=== PATIENT | female | born 2005 ===

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

== ENCOUNTER 2024-02-14 08:48 | Emergency (ER) | payer MEDICAID, SELFPAY ==
--- NOTE | ~2024-02-14 | CT_ITS ---
EXAMINATION: CT HEAD WITHOUT CONTRAST CLINICAL INFORMATION: Head strike COMPARISON: None available. TECHNIQUE: Contiguous axial imaging was performed from the skull base to vertex without intravenous administration of contrast. This CT examination was performed using dose optimization techniques as appropriate, variously including the following: *Automated exposure control *Adjustment of mA and/or kV according to patient size (this includes techniques or standardized protocols for targeted exams where dose is matched to indication/reason for exam; i.e. extremities or head) *Use of iterative reconstruction technique DLP: 698 mGy-cm FINDINGS: There is no evidence of acute intracranial hemorrhage or edematous territorial infarction. Garcia-white matter differentiation appears preserved. The ventricles are normal in morphology and size. No evidence for obstructive hydrocephalus. No abnormal mass effect or midline shift. No extra-axial fluid collections. No acute soft tissue or osseous abnormalities. Mucous retention cyst within the left compartment of the sphenoid sinus. The remaining visualized paranasal sinuses and mastoids are well-aerated. CT/CT head/brain wo IV con IMPRESSION: No acute intracranial pathology. Electronically signed by: Cristobal Gatica MD 02/14/2024 12:22 PM EDT
[2024-02-14 08:53] VITALS: BP 100/63; PULSE 77; RESP 18; TEMP 36.3; O2SAT 100; BMI 20.9
[2024-02-14] MEDS: Acetaminophen 325 MG TABLET 650 MG PO (09:34)
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
[2024-02-14 12:32] VITALS: BP 105/66; PULSE 61; RESP 16; TEMP 36.6; O2SAT 100
[2024-02-14 12:46] VITALS: BP 105/66; PULSE 61; RESP 16; TEMP 36.6; O2SAT 100
== END 2024-02-14 12:47 | disposition home or self-care (01) ==
PROVIDERS: Emergency Provider Emergency Medicine Emergency Medical Services; PCP Nurse Practitioner Pediatrics
DX: S06.0X0A Concussion without loss of consciousness, initial encounter (principal); V28.09XA Other motorcycle driver injured in noncollision transport accident in nontraffic accident, initial encounter; Y93.89 Activity, other specified; Y92.410 Unspecified street and highway as the place of occurrence of the external cause; Y99.9 Unspecified external cause status
CPT/HCPCS: 70450; 99283; 99284

== ENCOUNTER 2025-04-29 22:45 | Emergency (ER) | payer MEDICAID, SELFPAY ==
--- NOTE | ~2025-04-29 | CT_ITS ---
CLINICAL HISTORY: ?L OBGYN NURSE CT soft tissue neck with contrast Comparison: None provided Findings: Large mucous retention cyst present at the left sphenoid sinus with a small mucous retention cyst at the right sphenoid sinus. Minimal lobulated mucosal thickening versus small mucous retention cysts present at the right maxillary sinus. The bilateral mastoid air cells appear clear. Mild fullness of the palatine tonsils. No peritonsillar abscess. The epiglottis is within normal limits for appearance. No prevertebral fluid. The nasopharynx and oropharynx appear patent. Salivary glands are within normal limits. No suspicious thyroid nodules. No consolidation at the lung apices. No acute fractures. IMPRESSION: 1. Mild fullness of the bilateral palatine tonsils, suggesting tonsillitis. No peritonsillar abscess. This document has been electronically signed by: Ilan Mendez MD on 04/30/2025 03:51:34
[2025-04-29 22:56] VITALS: BP 111/64; PULSE 94; RESP 18; TEMP 37.7; O2SAT 98; BMI 22.7
[2025-04-29 23:33] LABS: IDNOW Serial# 6674DD1D; Strep A Nucleic Acid Negative (Negative)
--- OUTSIDE RECORDS SUMMARY | 2025-04-29 23:49 | XMS_ITS | Clinical Summary ---
Author Organization [employer] Address [address] [place] [address] Care Team Providers Care Assembler [employer] Spider Name Role Phone Jade Matos MD Primary Care Provider [phone] Allergies No known active allergies Medications cetirizine (ZyrTEC) 10 MG tablet Take 1 tablet (10 mg) by mouth in the morning. 30 tablet 11 09/05/2022 Active levocetirizine (Xyzal) 2.5 MG/5ML solutionIndicat ions:Seasonal allergies Take 5 mL (2.5 mg) by mouth in the evening. 148 mL 12 03/25/2023 Active diphenhydrAMINE (BENADryl) 25 MG tabletIndicatio ns:Seasonal allergies Take 2 tablets (50 mg) by mouth if needed at bedtime for itching or allergies. 30 tablet 03/25/2023 Active Menthol (Cough Drops) 2.7 MG lozengeIndicati ons:Sore throat 1 cough drop every 4 to 6 hours. 30 lozenge 03/25/2023 Active fexofenadine (Nicole) 180 MG tabletIndicatio ns:Seasonal allergies TAKE ONE TABLET EVERY DAY NEEDED (ALLERGIES) 30 tablet 1 06/11/2023 Active Active Problems Problem Noted Date Diagnosed Date Acne cosmetica 04/18/2016 Allergic rhinitis 10/09/2013 Vitamin D deficiency 03/11/2012 Immunizations Immunization Administration Dates Next Due DTaP 09/22/2008, 6,01/25/2005,2004,0 2004 Hep A, ped/adol, 2 dose 02/27/2007,04/15/2006 Hep B, Adolescent or Pediatric 01/26/2005,2004,2004,2004 Hib (HbOC) 12/03/2005,01/26/2005,2004 ,2004 IPV 09/22/2008,01/26/2005,2004 ,2004 Influenza, IIV3, injectable 03/19/2006, 5 MMR 09/22/2008,08/01/2005 Meningococcal MCV4P [id number]-135 04/18/2016 Tdap 04/18/2016 Varicella 10/09/2013,09/22/2008 Social History Tobacco Use Types Packs/Day Years Used Date Smoking Tobacco: Unknown Tobacco Cessation:Counseling Given: No Comments Unknown Sex and Gender Information Value Date Recorded Sex Assigned at Female 04/09/2022 10:18 AM EDT Legal Sex Female 10:18 AM EDT Gender Identity Female 04/09/2022 10:18 AM EDT Sexual Orientation Straight 04/09/2022 10 :18 AM EDT Last Filed Vital Signs Vital Sign Reading Time Taken Comments Blood Pressure 102/63 03/25/2023 3:09 PM EDT Pulse 65 03/25/2023 3:09 PM EDT Temperature 37 C (98.6 F) 03/25/2023 3:09 PM EDT Respiratory Rate 18 03/25/2023 3:09 PM EDT Oxygen Saturation 99% 03/25/2023 3:09 PM EDT Inhaled Oxygen Concentration - - Weight 63 kg (139 lb) 09/05/2022 2:30 PM EDT Height 153.7 cm (5' 0.5 ) 09/05/2022 2:30 PM EDT Body Mass Index 26.7 09/05/2022 2:30 PM EDT Plan of Treatment Health Maintenance Due Date Last Done Comments Chlamydia and Gonorrhea Screening 2004 Depression Screening 2004 HIV Screening 2004 SDOH Screening 2004 Disability Screening 2004 Alcohol/Substance Use Screening 2016 Family Planning (PISQ) 2019 HPV Vaccines (1 - 3-dose series) 2019 Meningococcal B Vaccine (1 of 2 - Standard) 2020 Hepatitis C Screening 2022 Tobacco Screening 03/25/2024 03/25/2023 COVID-19 Vaccine ( - season) 2025 Influenza Vaccine (#1) 2025 03/19/2006, 2004 DTaP/Tdap/Td Vaccines (7 - Td or Tdap) 04/18/2026 04/18/2016, 09/22/2008, 12/03/2005, Additional history exists Zoster Vaccines (1 of 2) 2054 RSV Patients and Patients Aged 60 years or older (1 - 1-dose 75+ series) 2079 Hepatitis B Vaccines Completed 01/26/2005, 2004, 2004, Additional history exists HIB Vaccines Completed 12/03/2005, 01/08, 2004, Additional history exists Hepatitis A Vaccines Completed 02/27/2007, 04/15/20 IPV Vaccines Completed 09/22/2008, 01/08, 2004, Additional history exists Meningococcal Vaccine Aged Out 04/18/2016 No saira emmy eligible based on patient's age to complete this topic Pneumococcal Vaccine: Pediatrics (0 to 5 Years) and At-Risk Patients (6 to 49) Years Aged Out No longer eligible based on patient's age to complete this topic RSV under 20 months Aged Out No longe r eligible based on patient's age to complete this topic Rotavirus Vaccines Aged Out No longer eligible based on patient's age to complete this topic Insurance [facility] Care Teams Assembler [employer] Spider Relationship Specialty Start Date End Date Jade Matos MD [address] [place] [id number] PCP - General Internal Medicine 07/22/23
--- OUTSIDE RECORDS SUMMARY | 2025-04-29 23:49 | XMS_ITS | Encounter Summary ---
Author Organization [employer] Address [address] [place] [address] [address] [place] [address] Care Team Providers Care Consultant Electronics Name Role Phone Katheryn Kincaid NP Primary Care Provider Jade Manriquez MD Primary Care Provider [phone] Encounter Details Date Type Department Care Team (Late st Contact Info) Description 04/12/2023 Orders Only [facility] [address] [place], [place] [id number] Nannette Kirkpatrick MD [address] [place] [address] Seasonal allergies (Primary Dx) Social History Tobacco Use Types Packs/Day Years Used Date Smoking Tobacco: Unknown Comments Unknown Sex and Gender Information Value Date Recorded Sex Assigned at Female 04/09/2022 10:18 AM EDT Legal Sex Female 10:18 AM EDT Gender Identity Female 04/09/2022 10:18 AM EDT Sexual Orientation Straight 04/09/2022 10 :18 AM EDT documented as of this encounter Plan of Treatment Not on file documented as of this encounter Visit Diagnoses Diagnosis Seasonal allergies- Primary Allergic rhinitis, cause unspecified documented in this encounter Care Teams Consultant Electronics Relationship Specialty Start Date End Date Katheryn Kincaid NP PCP - General Pediatrics 04/18/16 07/21/23 Jade Matos MD [address] [place] [address] PCP - General Internal Medicine 07/22/23 documented as of this encounter
[2025-04-29 23:54] VITALS: BP 113/52; PULSE 82; RESP 16; TEMP 37.1; O2SAT 98
--- NOTE | 2025-04-30 00:54 | ED.URI ---
HPI - URI/Sore Throat General Chief Complaint: Upper Respiratory Symptoms Stated Complaint: Sore Throat Time Seen by Provider: 04/30/25 00:20 History of Present Illness ED Provider: Soraya Rivera HPI Narrative: 19-year-old female otherwise healthy presents to the ED for evaluation with her mother complaining of a sore throat that began 4 days prior to arrival here, now with white patches noted on the tonsils, and fever. Unknown T-max, as she reports only feeling very feverish. Reports painful swallow, pain is now worse on the left than the right, though initially began on the right. Denies any cough, congestion. No chest pain, pressure, shortness of breath. No abdominal pain, nausea or vomiting, urinary complaints. Related Data Previous Rx's ?Medication ?Instructions ?Recorded amoxicillin 875 mg-potassium 1 tab PO Q12H 10 days #20 tabs 12/14/21 clavulanate 125 mg tablet albuterol sulfate 90 mcg/actuation 1 inh inhalation QID PRN shortness 08/06/23 aerosol inhaler of breath or wheezing #8.5 grams azithromycin 250 mg tablet See Rx Instructions PO .COMPLEX #6 08/06/23 (Zithromax Z-Ad) tabs prednisone 10 mg tablet 10 mg PO BID #10 tabs 08/06/23 cyclobenzaprine 10 mg tablet 10 mg PO BEDTIME PRN muscle spasm 11/04/23 #7 tabs ibuprofen 600 mg tablet 600 mg PO Q6H PRN pain #14 tabs 11/04/23 ondansetron 4 mg disintegrating 4 mg PO DAILY PRN nausea and 02/14/24 tablet vomiting 5 days #10 tabs acetaminophen 500 mg capsule 1,000 mg (2 x 500 mg) PO .q8 PRN 04/30/25 fever or pain #30 caps amoxicillin 500 mg capsule 500 mg PO BID #20 caps 04/30/25 ibuprofen 600 mg tablet 600 mg PO Q8H PRN fever or pain 04/30/25 #30 tabs Allergies Allergy/AdvReac Type Severity Reaction Status Date / Time No Known Allergies Allergy Verified 04/29/25 22:58 Review of Systems Review of Systems: ROS is otherwise negative unless mentioned in HPI. [facility] Social History Social History Alcohol intake: current Alcohol intake frequency: holidays/special occasions only Smoked in Last 30 Days: No Use of substances other than those prescribed or required for medical reasons: No Substance Use Type: Marijuana Advance Directives: No Advance Directives Information Provided: Yes Do you have a plan to hurt others: No Plan Patient : No Physical Exam Exam: Exam: Nursing notes and vital signs reviewed. Constitutional: Well-appearing, NAD. Alert. Oriented X3. Eyes: EOMI. ENT: Oropharynx pink, moist. Tonsils are 2+ bilaterally, tonsil on the left appears more edematous, with exudate bilaterally. Uvula is pointing left. Nares patent bilaterally. External ears normal. Neck: Normal inspection. Neck supple. Mild cervical adenopathy bilaterally. CVS: Normal heart rate and rhythm. Pulses normal. Respiratory: No respiratory distress. Breath sounds normal. Abdomen: Soft and nontender. Nondistended. Skin: Skin warm and dry. Normal skin color. Extremities: No lower extremity edema. Neuro: Oriented X 3. No motor deficit. Vital Signs: Vital Signs: Last Vital Signs Temp 98.7 F 04/30/25 03:50 Pulse 88 04/30/25 03:50 Resp 16 04/30/25 03:50 BP 114/53 L 04/30/25 03:50 Pulse Ox 97 04/30/25 03:50 O2 Del Method Room Air 04/30/25 03:50 BMI result Body Mass Index 22.7 Course Course Course Narrative: 4:29 AM 04/30/2025 (Temitope FONSECA): Patient is a 19-year-old female presenting to the ED for evaluation of sore throat and fever which began Saturday with the associated tonsillar exudate tonsillar swelling. Patient was treated with the Unasyn, Toradol, Decadron, and IV fluids. The patient was sent for a viral swab, strep swab, and CT of the neck to rule out WELDING PROCESS SPECIALIST due to reported deviation of the uvula on exam. Patient was signed out to this provider pending CT and laboratory results. The patient's workup has resulted and shows no leukocytosis or significant anemia, no electrolyte abnormality or JOANIE, swabs are negative for influenza, RSV, and COVID. Strep swab is negative, mono screen is negative. On repeat exam there is no unilateral swelling or uvular deviation, but there is significant bilateral tonsillitis, greater on the left, with mild tonsillar exudate, there is no trismus, no voice changes. There is some cervical anterior lymphadenopathy noted. Despite the negative strep swab, the patient meets 3/4 Centor criteria, we will continue antibiotic therapy with amoxicillin b.i.d. for 10 days. Patient will be discharged with supportive care. Medications Administered Discontinued Medications Generic Name Dose Route Start Last Admin Trade Name Kennedy PRN Reason Stop Dose Admin Dexamethasone Sodium Phosphate 10 mg 04/30/25 00:50 04/30/25 01:53 Dexamethasone Sod Phosphate 10 Mg/Ml Vial IVPUSH 04/30/25 00:51 10 mg ONCE ONE Administration Ampicillin Sodium/Sulbactam 100 mls @ 200 mls/hr 04/30/25 00:50 04/30/25 02:57 Sodium 3 gm/ Sodium Chloride IV 04/30/25 01:19 Infused ONCE ONE Infusion Sodium Chloride 1,000 mls @ 999 mls/hr 04/30/25 00:52 04/30/25 02:57 Ns IV 04/30/25 01:52 Infused .Q1H1M ONE Infusion Iohexol 100 ml 04/30/25 02:33 04/30/25 02:33 Iohexol 350 Mg/Ml 100 Ml Infus..Btl IV 04/30/25 02:34 65 ml ONCE ONE Administration Ketorolac Tromethamine 15 mg 04/30/25 00:50 04/30/25 01:52 Ketorolac Tromethamine 15 Mg/Ml Vial IVPUSH 04/30/25 00:51 15 mg ONCE ONE Administration Medical Decision Making Medical Decision Making [facility] Narrative: Upon my initial examination, she has chief complaint of sore throat. Reports that there has been an associated fever, and she now notes white patches on her tonsils. The uvula is pointing towards the left, concerning for underlying WELDING PROCESS SPECIALIST. We will also obtain a Monospot, COVID flu RSV. With the concern for underlying WELDING PROCESS SPECIALIST given the throat is extremely erythematous, as well as with tonsillar exudate bilaterally, we will administer a dose of steroids, Toradol for pain control, IV fluids, and Unasyn for antibiotic coverage. We will obtain CT soft tissue neck for further assessment and reassess. 2004-- negative mono screen. Viral panel currently pending. lab work with no leukocytosis, overall reassuring. Currently pending CT imaging of the neck. signed out to oncoming provider, Reji FONSECA Differential Diagnosis Differential Diagnoses: The differential diagnosis associated with the presentation includes Strep throat, viral sore throat, peritonsillar abscess, viral illness Admission/Observation Consideration of admission/observation: Escalation of care including admission/observation considered Lab Data [facility] Lab Attestation statement: I reviewed the patient's lab results. 04/30/25 01:34 04/30/25 01:34 Labs: Lab Results 04/29/25 04/30/25 04/30/25 Range/Units 23:18 01:34 02:06 WBC 7.0 (4.8-10.8) X10*3/uL RBC 4.23 (4.20-5.50) X10*6/uL Hgb 12.5 (12.0-16.0) g/dl Hct 36.7 L (37.0-47.0) % MCV 86.8 (80.0-98.0) fL MCH 29.6 (27.0-33.0) pg MCHC 34.1 (31.0-35.0) g/dl RDW 12.2 (11.0-16.0) % Plt Count 238 (160-400) X10*3/uL MPV 8.9 L (9.4-12.3) fL Immature Gran % (Auto) 0.3 (0.0-0.4) % Neut % (Auto) 74.8 H (45-73) % Lymph % (Auto) 14.9 L (20-40) % Elliott % (Auto) 9.6 (2-11) % Eos % (Auto) 0.1 (0-4) % Baso % (Auto) 0.3 (0-2) % Lymph # (Auto) 1.0 L (1.2-4.9) X10*3/uL Elliott # (Auto) 0.7 (0.1-1.2) X10*3/uL Eos # (Auto) 0.0 (0.0-0.4) X10*3/uL Baso # (Auto) 0.0 (0.0-0.2) X10*3/uL Abs Immat Gran (auto) 0.02 (0.00-0.03) X10*3/uL Absolute Neuts (auto) 5.2 (2.0-8.3) x10*3/uL Absolute Nucleated RBC 0.000 (0.0-0.012) X10*3/uL Nucleated RBC % (auto) 0.0 (0.0-0.2) /100WBC Sodium 137 (135-145) mmol/L Potassium 3.7 (3.3-5.1) mmol/L Chloride 103 (96-108) mmol/L Carbon Dioxide 22 (22-29) mmol/L Anion Gap 16 (12-20) BUN 11 (9-16) mg/dL Creatinine 0.66 (0.5-1.4) mg/dL Estim Creat Clear Calc 102.6 Estimated GFR > 60 Fasting Glucose 85 (60-99) mg/dL Calcium 9.4 (8.4-10.2) mg/dL Urine Test NEGATIVE (NEGATIVE) Monoscreen Negative (Negative) Influenza Type A (PCR) NEGATIVE (Negative) Influenza Type B (PCR) NEGATIVE (Negative) RSV RNA Qual (PCR) NEGATIVE (Negative) SARS-CoV-2 RNA (RT-PCR) NEGATIVE (Negative) S. pyogenes GrpA DIONISIO Negative (Negative) Radiology Impression Discussion of test interpretation with radiology: I have reviewed the radiologist's reading. Radiologist Impression: CT soft tissue neck with contrast Comparison: None provided Findings: Large mucous retention cyst present at the left sphenoid sinus with a small mucous retention cyst at the right sphenoid sinus. Minimal lobulated mucosal thickening versus small mucous retention cysts present at the right maxillary sinus. The bilateral mastoid air cells appear clear. Mild fullness of the palatine tonsils. No peritonsillar abscess. The epiglottis is within normal limits for appearance. No prevertebral fluid. The nasopharynx and oropharynx appear patent. Salivary glands are within normal limits. No suspicious thyroid nodules. No consolidation at the lung apices. No acute fractures. IMPRESSION: 1. Mild fullness of the bilateral palatine tonsils, suggesting tonsillitis. No peritonsillar abscess. This document has been electronically signed by: Ilan Mendez MD on 04/30/2025 03:51:34 Independent Historian Clinical information obtained from an independent historian. History obtained from or confirmed by: Parent (Mom at bedside) External Record Review External record reviewed: Outpatient record Discharge Plan Discharge Clinical Impression: Pharyngitis Qualifiers: Pharyngitis/tonsillitis etiology: unspecified etiology Qualified Code(s): J02.9 - Acute pharyngitis, unspecified Patient Disposition: Home, Self-Care Instructions: Pharyngitis (ED) Additional Instructions: Thank you for choosing [facility]'s Emergency Department for your care today. Thankfully your CT today shows no evidence of a peritonsillar abscess requiring drainage. Your laboratory evaluation was negative for mononucleosis, influenza, RSV, COVID, systemic infection, anemia, electrolyte abnormalities, or kidney dysfunction. At this time there is no indication for admission to the hospital or continued ED observation, and it is safe to discharge you home. Your sore throat may be secondary to a viral illness as your strep swab was negative, however based on your exam it is possible your infection is bacterial and the strep swab was a false negative. As such you should take amoxicillin twice a day for the next 10 days. You should take alternating (staggered) doses of ibuprofen 600mg and Tylenol 1000mg every 4 hours as needed for any additional pain. Please stay well hydrated and get plenty of rest. Please avoid hot liquids as this could increase your swelling and discomfort. Please follow up with your primary care physician for re-evaluation, additional management of your symptoms, and continued preventative care. If you do not have a primary care physician, please call the [facility] at [phone] to establish a new primary care physician. While waiting to establish your new primary care physician, you can call our [facility] at [phone] for non-emergency needs. Please return to the emergency department if you develop a severe or sudden change in your symptoms, difficulty opening your mouth, difficulty breathing, a fever over 100.4 that does not improve with Tylenol or Ibuprofen, recurrent vomiting, or any other new or worsening symptoms or concerns. Prescriptions: New acetaminophen 500 mg capsule 1,000 mg PO .q8 PRN (Reason: fever or pain) Qty: 30 0RF ibuprofen 600 mg tablet 600 mg PO Q8H PRN (Reason: fever or pain) Qty: 30 0RF amoxicillin 500 mg capsule 500 mg PO BID Qty: 20 0RF No Action amoxicillin-pot clavulanate 875-125 mg tablet 1 tab PO Q12H 10 Days Qty: 20 0RF azithromycin [Zithromax Z-Ad] 250 mg tablet See Rx Instructions .ROUTE .COMPLEX Qty: 6 0RF Rx Instructions: For 250 mg dose pack: take 500 mg today (day 1), then 250 mg for 4 days (days 2-5) prednisone 10 mg tablet 10 mg PO BID Qty: 10 0RF albuterol sulfate 90 mcg/actuation HFA aerosol inhaler 1 inh inhalation QID PRN (Reason: shortness of breath or wheezing) Qty: 8.5 0RF ibuprofen 600 mg tablet 600 mg PO Q6H PRN (Reason: pain) Qty: 14 0RF cyclobenzaprine 10 mg tablet 10 mg PO BEDTIME PRN (Reason: muscle spasm) Qty: 7 0RF ondansetron 4 mg tablet,disintegrating 4 mg PO DAILY PRN (Reason: nausea and vomiting) 5 Days Qty: 10 0RF Stand Alone Forms: Work/School Release Print Language: Belarusian
[2025-04-30 01:40] LABS: MANUAL DIFF FLAG NO
[2025-04-30 01:42] LABS: Hematocrit 36.7 % (37.0-47.0); Hemoglobin 12.5 g/dl (12.0-16.0); Imm Gran Abs Auto 0.02 X10*3/uL (0.00-0.03); Imm Gran Pct Auto 0.3 % (0.0-0.4); Lymphocytes Absolute Auto 1.0 X10*3/uL (1.2-4.9); Mean Corpuscular HGB Conc 34.1 g/dl (31.0-35.0); Mean Corpuscular Hemoglobin 29.6 pg (27.0-33.0); Mean Corpuscular Volume 86.8 fL (80.0-98.0); NRBC Abs Auto 0.000 X10*3/uL (0.0-0.012); NRBC Pct Auto 0.0 /100WBC (0.0-0.2); Platelet Count 238 X10*3/uL (160-400); Red Blood Count 4.23 X10*6/uL (4.20-5.50); White Blood Count 7.0 X10*3/uL (4.8-10.8)
[2025-04-30 01:54] LABS: Anion Gap 16 (12-20); Blood Urea Nitrogen 11 mg/dL (9-16); Calcium 9.4 mg/dL (8.4-10.2); Carbon Dioxide 22 mmol/L (22-29); Chloride 103 mmol/L (96-108); Creatinine Clr Calc Pharmacy 102.6; Estimated Glomerular Filt Rate > 60; Potassium 3.7 mmol/L (3.3-5.1); Sodium 137 mmol/L (135-145)
[2025-04-30 01:58] VITALS: BP 114/62; PULSE 79; RESP 16; TEMP 37.1; O2SAT 99
--- NOTE | 2025-04-30 02:09 | PC.NURSE ---
per ED provider no sepsis criteria met, okay to give abx per MAR
[2025-04-30 02:17] LABS: UPreg QC Valid YES
[2025-04-30 02:18] LABS: Resp Syncy Virus RNA Qual PCR NEGATIVE (Negative); SARS COV2 PCR INHOUSE NEGATIVE (Negative)
[2025-04-30] MEDS: iohexoL 350 MG/ML 100 ML INFUS..BTL IV (02:33)
[2025-04-30 03:50] VITALS: BP 114/53; PULSE 88; RESP 16; TEMP 37.1; O2SAT 97
[2025-04-30 05:01] VITALS: BP 114/53; PULSE 88; RESP 16; TEMP 37.1; O2SAT 97
== END 2025-04-30 05:01 | disposition home or self-care (01) ==
PROVIDERS: Nurse Practitioner; Emergency Provider Emergency Medicine
DX: J02.9 Acute pharyngitis, unspecified (principal); R50.9 Fever, unspecified; Z03.818 Encounter for observation for suspected exposure to other biological agents ruled out
CPT/HCPCS: 36415; 70491; 80048; 81025; 85025; 86308; 87637; 87651; 96365; 96375; 99284; J0295; J1100; J1885; Q9967

== ENCOUNTER → 2025-04-30 00:50 | Outpatient (BNV) | payer MEDICAID, SELFPAY | PROVIDERS: Emergency Provider Emergency Medicine; Visit Provider Radiology Diagnostic Radiology | DX: Z03.89 Encounter for observation for other suspected diseases and conditions ruled out (principal) | CPT/HCPCS: 70491 ==

== ENCOUNTER 2025-05-03 16:52 | Outpatient (REF) | payer MEDICAID, SELFPAY ==
--- OUTSIDE RECORDS SUMMARY | 2025-05-03 15:40 | XMS_ITS | Encounter Summary ---
Author Organization [employer] Address [address] [facility] [address] [place] [address] Care Team Providers Care Plan Examiner Name Role Phone Jade Matos MD Primary Care Provider [phone] Reason for Visit * Reason Comments Sore Throat Encounter Details Date Type Department Care Team ([facility] st Contact Info) Description 05/03/2025 3:40 PM EST Office Visit [facility] [address] [place] [id number] Mold exposure (Primary Dx); Tonsillar exudate Social History Tobacco Use Types Packs/Day Years Used Date Smoking Tobacco: Unknown Comments Unknown Sex and Gender Information Value Date Recorded Sex Assigned at Female 04/09/2022 10:18 AM EDT Legal Sex Female 10:18 AM EDT Gender Identity Female 04/09/2022 10:18 AM EDT Sexual Orientation Straight 04/09/2022 10 :18 AM EDT documented as of this encounter Last Filed Vital Signs Vital Sign Reading Time Taken Comments Blood Pressure 113/71 05/03/2025 3:38 PM EST Pulse 108 05/03/2025 3:38 PM EST Temperature 37.3 C (99.2 F) 05/03/2025 3:38 PM EST Respiratory Rate 26 05/03/2025 3:38 PM EST Oxygen Saturation 99% 05/03/2025 3:38 PM EST Inhaled Oxygen Concentration - - Weight 52.3 kg (115 lb 3.2 oz) 05/03/2025 3:38 P M EST Height 154.9 cm (5' 1 ) 05/03/2025 3:38 PM EST Body Mass Index 21.77 05/03/2025 3:38 PM EST documented in this encounter Plan of Treatment Scheduled Orders Name Type Priority Associated Diagnoses Orde r Schedule Culture, Throat Microbiology Routine Tonsillar exudate Expected: 05/03/2025 (Approximate), Expires: 05/03/2026 Chlamydia/N. Gonorrhoeae RNA, TMA, Throat Microbiology Routine Tonsillar exudate Expected: 05/03/2025 (Approximate), Expires: 05/03/2026 documented as of this encounter Procedures Procedure Name Priority Date/Time Associated Diagnosis Comments MONONUCLEOSIS TEST, QUALITATIVE Routine 05/03/2025 4:59 PM EST Tonsillar exudate documented in this encounter Results * Mononucleosis Test, Qualitative (05/03/2025 4:59 PM EST) Monotest Negative Negative [facility] Blood Venous blood specimen / Unknown 05/03/2025 4:59 PM EST 05/03/2025 4:59 PM EST Laila Wadsworth ASSISTANT ATHLETIC TRAINER LAB BLOOD ORDERABLES Final Resu lt [facility] [address] [place] [address] [phone] documented in this encounter Visit Diagnoses Diagnosis Mold exposure- Primary Tonsillar exudate documented in this encounter Care Teams Plan Examiner Relationship Specialty Start Date End Date Jade Matos MD [address] [place] [address] PCP - General Internal Medicine 07/22/23 documented as of this encounter
--- OUTSIDE RECORDS SUMMARY | 2025-05-03 20:30 | XMS_ITS | Encounter Summary ---
Author Organization [employer] Address [address] [place] [address] [address] [place] [address] Care Team Providers Care Hose Inspector Name Role Phone Katheryn Kincaid NP Primary Care Provider Jade Manriquez MD Primary Care Provider [phone] Encounter Details Date Type Department Care Team (Late st Contact Info) Description 04/12/2023 Orders Only [facility] [address] [place], [place] [id number] Nannette Kirkpatrick MD [address] [place] [address] Seasonal allergies (Primary Dx) Social History Tobacco [...] unspecified documented in this encounter Care Teams Hose Inspector Relationship Specialty Start Date End Date Katheryn Kincaid NP PCP - General Pediatrics 04/18/16 07/21/23 Jade Matos MD [address] [place] [address] PCP - General Internal Medicine 07/22/23 documented as of this encounter
--- OUTSIDE RECORDS SUMMARY | 2025-05-03 20:30 | XMS_ITS | Encounter Summary ---
Author Organization [employer] Address [address] [facility] 7 [place] [address] Care Team Providers Care Medical Oncologist Name Role Phone Jade Matos MD Primary Care Provider [phone] Reason for Visit * Reason Onset Date Comments Nurse Triage 05/03/2025 Encounter Details Date Type Department Care Team ([facility] st Contact Info) Description 05/03/2025 Telephone [facility] [address] [place] [address] Jade Matos MD [address] [place] [address] Nurse Triage Social History Tobacco Use Types Packs/Day Years Used Date Smoking Tobacco: Unknown Comments Unknown Sex and Gender Information Value Date Recorded Sex Assigned at Female 04/09/2022 10:18 AM EDT Legal Sex Female 10:18 AM EDT Gender Identity Female 04/09/2022 10:18 AM EDT Sexual Orientation Straight 04/09/2022 10 :18 AM EDT documented as of this encounter Miscellaneous Notes * Telephone Encounter - Marcellus Lacy RN - 05/03/2025 10:10 AM EST TC placed to patient. Patient gave verbal permission for this nurse to talk to the patient mother. Patient mother reported patient continues to have a moderate to severe sore throat even with taking the prescribed medications for the ed visit on 05/01. Patient c/o difficulty swallowing denies any drooling. RN advised mother to bring the patient to the Walk in [place] for reevaluation. RN scheduledan appt in the Walk in Center. Mother and patient agreed to the appt. Protocol Used: Sore Throat (Adult) Protocol-Based Disposition: See in Office or Video Visit Today Video visit offer not recorded Positive Triage Questions: * Severe throat pain (e.g., excruciating) * Patient wants to be seen * Sore throat * All higher-acuity triage questions were negative. Care Advice Discussed: * Reassurance and Education - Sore Throat * Sore Throat * Soft Diet * Drink Plenty of Liquids * Pain and Fever Medicines * Expected Course * Reasons To Call Back - Fever lasts longer than 3 days - You become worse * Telephone Encounter - Daphne Arzate - 05/03/2025 8:28 AM EST Patient calling to report ED visit on : Date: 05/01 Hospital: [facility] Seen for: tonsil swelling Symptomatic Yes *if yes message should go to Triage Patient advised will forward to team nurse for follow up PCP Dr. Matos documented in this encounter Plan of Treatment Not on file documented as of this encounter Visit Diagnoses Not on filedocumented in this encounter Care Teams Medical Oncologist Relationship Specialty Start Date End Date Jade Matos MD [address] [place] [address] PCP - General Internal Medicine 07/22/23 documented as of this encounter
--- OUTSIDE RECORDS SUMMARY | 2025-05-03 20:30 | XMS_ITS | Clinical Summary ---
Author Organization [employer] Address [address] [facility] [address] [place] [address] Care Team Providers Care Automation Machine Builder Name Role Phone Jade Matos MD Primary Care Provider [phone] Allergies No known active allergies Medications cetirizine [...] NEEDED (ALLERGIES) 30 tablet 1 06/11/2023 Active benzocaine (Hurricaine) 20 % solutionIndicat ions:Tonsillar exudate Use 2 sprays in the mouth or throat if needed in the morning, at noon, in the evening, and at bedtime for mucositis. 30 mL 1 05/03/2025 Active Active Problems Problem Noted Date Diagnosed Date Acne cosmetica 04/18/2016 Allergic rhinitis 10/09/2013 Vitamin D deficiency 03/11/2012 Encounters Date Type Department Care Team Description 05/03/2025 3:40 PM EST Office Visit [facility] [address] [place] [address] Mold exposure (Primary Dx); Tonsillar exudate 05/03/2025 Travel 05/03/2025 Telephone [facility] MEDICINE [address] [place] [address] Jade Matos MD Nurse Triage from Last 3 Months Immunizations Immunization Administration Dates Next Due DTaP [...] Mass Index 21.77 05/03/2025 3:38 PM EST Plan of Treatment Health Maintenance Due Date Last Done Comments Chlamydia and Gonorrhea Screening 2004 Depression Screening 2004 HIV Screening 2004 SDOH Screening 2004 Alcohol/Substance Use Screening 2016 Family Planning (PISQ) 2019 HPV Vaccines (1 - 3-dose series) 2019 Meningococcal B Vaccine (1 of 2 - Standard) 2020 Hepatitis C Screening 2022 Tobacco Screening 03/25/2024 03/25/2023 COVID-19 Vaccine (1 - 2024- season) 2025 Influenza Vaccine (#1) 2025 03/19/2006, 2004 DTaP/Tdap/Td Vaccines (7 - Td or Tdap) 04/18/2026 04/18/2016, 09/22/2008, 12/03/2005, Additional history exists Disability Screening 05/03/2026 05/03/2025 Zoster Vaccines (1 of 2) 2054 RSV Patients and Patients Aged 60 years or older (1 - 1-dose 75+ series) 2079 Hepatitis B Vaccines Completed 01/26/2005, 2004, 2004, Additional history exists HIB Vaccines Completed 12/03/2005, 01/08, 2004, Additional history exists Hepatitis A Vaccines Completed 02/27/2007, 04/15/20 06 IPV Vaccines Completed 09/22/2008, 01/08, 2004, Additional [...] on patient's age to complete this topic Procedures Procedure Name Priority Date/Time Associated Diagnosis Comments MONONUCLEOSIS TEST, QUALITATIVE Routine 05/03/2025 4:59 PM EST Tonsillar exudate from Last 3 Months Results * Mononucleosis Test, Qualitative (05/03/2025 4:59 PM EST) Monotest Negative Negative [facility] Blood Venous blood specimen / Unknown 05/03/2025 4:59 PM EST 05/03/2025 4:59 PM EST us Laila Wadsworth CUSTOMER SERVICE SALES CONSULTANT LAB BLOOD ORDERABLES Final Resu lt [facility] [address] [place] [address] [phone] from Last [address] [place] [address] Member Subscriber Plan / Payer (Ef fective 2022-Present) Name:Isabella Mariscal Relation to Subscriber:Self Name:Isabella Mariscal Payer ID:Not on file Group ID:Not on file Type:Medicaid Address: [id number] , [address] [place] [address] Care Teams Automation Machine Builder Relationship Specialty Start Date End Date Jade Matos MD [address] [place] [address] PCP - General Internal Medicine 07/22/23
--- OUTSIDE RECORDS SUMMARY | 2025-05-03 20:30 | XMS_ITS | Encounter Summary ---
Author Organization [employer] Address [address] [facility] 7[address] [place] [address] Care Team Providers Care Seater Grinder Name Role Phone Jade Matos MD Primary Care Provider [phone] Encounter Details Date Type Department Care Team (Latest Contact Info) Description 05/03/2025 Travel Social History Tobacco Use Types Packs/Day Years [...] on filedocumented in this encounter Care Teams Seater Grinder Relationship Specialty Start Date End Date Jade Matos MD [address] [place] [address] PCP - General Internal Medicine 07/22/23 documented as of this encounter
[2025-05-09 00:22] LABS: C. Trachomatis RNA TMA, Throat NOT DETECTED; N. gonorrhoeae RNA TMA, Throat NOT DETECTED
== END 2025-05-03 16:53 | disposition home or self-care (01) ==
LOC: HO.LAB 16:52
PROVIDERS: Visit Provider Nurse Practitioner
DX: J35.8 Other chronic diseases of tonsils and adenoids (principal); Z20.2 Contact with and (suspected) exposure to infections with a predominantly sexual mode of transmission
CPT/HCPCS: 36415; 86308; 87070; 87491; 87591